=== PATIENT | female | born 1990 | race Caucasian/White ===

== ENCOUNTER 2022-03-07 09:44 | Emergency (ER) | payer OTHER | END 2022-03-07 10:19 | disposition home or self-care (01) | LOC: MADERS 09:44 | DX: O99.512 Diseases of the respiratory system complicating pregnancy, second trimester (principal); J30.9 Allergic rhinitis, unspecified; O99.891 Other specified diseases and conditions complicating pregnancy; R09.82 Postnasal drip; O99.332 Smoking (tobacco) complicating pregnancy, second trimester; F17.210 Nicotine dependence, cigarettes, uncomplicated; Z3A.15 15 weeks gestation of pregnancy | CPT/HCPCS: 99283 ==

== ENCOUNTER 2024-01-18 20:46 | Emergency (ER) | payer OTHER | END 2024-01-18 21:36 | disposition home or self-care (01) | LOC: MADERS 20:46 | DX: J20.9 Acute bronchitis, unspecified (principal); F17.210 Nicotine dependence, cigarettes, uncomplicated | CPT/HCPCS: 99283 ==